=== PATIENT | female | born 1945 | race Caucasian/White ===

== ENCOUNTER → 2024-03-09 15:14 | Outpatient (REF) | payer OTHER, SELFPAY ==
[2024-03-09 16:30] LABS: % Basophils 0.8 % (0-2); % Eosinophils 2.8 % (0-6); % Immature Granulocytes 0.2 % (0-0.5); % Lymphocytes 36.6 % (20.5-51.1); % Monocytes 9.3 % (1.7-9.3); % Neutrophils 50.3 % (42.2-75.2); Absolute Eosinophils 0.1 10^3/uL (0-0.7); Absolute Lymphocytes 1.9 10^3/uL (1.2-3.4); Absolute Monocytes 0.5 10^3/uL (0.1-0.6); Absolute Neutrophils 2.6 10^3/uL (1.4-6.5); Hematocrit 39.2 % (37.0-47.0); Hemoglobin 13.4 g/dL (12.0-16.0); Mean Corp Hgb Conc. 34.2 g/dL (33.0-37.0); Mean Corpuscular Hgb 32.1 pg (27.0-31.0); Mean Platelet Volume 9.6 fL (7.4-10.4); Nucleated Red Blood Cells % 0 %; Platelet Count 211 10^3/uL (130-400); Red Blood Cell Count 4.17 10^6/uL (4.20-5.40); Red Cell Dist. Width 12.4 % (11.5-14.5); White Blood Cell Count 5.1 10^3/uL (4.8-10.8)
[2024-03-09 16:44] LABS: ALT (SGPT) 17 U/L (0-35); AST (SGOT) 27 U/L (14-36); Alkaline Phosphatase 63 U/L (38-126); Blood Urea Nitrogen 12 mg/dl (7-17); Calcium 9.4 mg/dl (8.4-10.2); Carbon Dioxide 28 mmol/L (22-30); Chloride 105 mmol/L (98-107); Glucose 76 mg/dl (70-99); Sodium 139 mmol/L (135-145); Total Bilirubin 0.4 mg/dl (0.2-1.3); Total Protein 6.5 g/dl (6.3-8.2); eGFR > 60.00
== END ==
LOC: REG 15:14
PROVIDERS: ATTENDING PHYSICIAN Internal Medicine Rheumatology; FAMILY PHYSICIAN Family Medicine
DX: M19.041 Primary osteoarthritis, right hand (principal); M19.079 Primary osteoarthritis, unspecified ankle and foot; M81.0 Age-related osteoporosis without current pathological fracture; R52 Pain, unspecified; Z51.81 Encounter for therapeutic drug level monitoring; M54.50 Low back pain, unspecified
CPT/HCPCS: 36415; 72110; 72202; 80053; 85025

== ENCOUNTER → 2024-03-29 16:23 | Outpatient (REF) | payer OTHER, SELFPAY ==
[2024-03-29 18:22] LABS: Free T4 0.88 ng/dl (0.78-2.19); Total Thyroxine 6.76 ug/dl (5.5-11.0)
[2024-03-29 18:35] LABS: TSH 1.49 uIU/ml (0.47-4.68)
== END ==
LOC: REG 16:23
PROVIDERS: ATTENDING PHYSICIAN Family Medicine
DX: R41.3 Other amnesia (principal)
CPT/HCPCS: 84436; 84439; 84443

== ENCOUNTER → 2024-04-22 15:01 | Outpatient (REF) | payer OTHER, SELFPAY ==
[2024-04-22 16:31] LABS: % Basophils 0.8 % (0-2); % Eosinophils 1.8 % (0-6); % Immature Granulocytes 0.3 % (0-0.5); % Monocytes 8.3 % (1.7-9.3); % Neutrophils 69.8 % (42.2-75.2); Absolute Basophils 0.1 10^3/uL (0-0.2); Absolute Eosinophils 0.1 10^3/uL (0-0.7); Absolute Lymphocytes 1.4 10^3/uL (1.2-3.4); Absolute Monocytes 0.6 10^3/uL (0.1-0.6); Absolute Neutrophils 5.1 10^3/uL (1.4-6.5); Hematocrit 40.4 % (37.0-47.0); Hemoglobin 13.7 g/dL (12.0-16.0); Mean Corp Hgb Conc. 33.9 g/dL (33.0-37.0); Mean Corpuscular Hgb 32.9 pg (27.0-31.0); Mean Corpuscular Volume 96.9 fL (81.0-99.0); Mean Platelet Volume 10.1 fL (7.4-10.4); Nucleated Red Blood Cells % 0 %; Platelet Count 238 10^3/uL (130-400); Red Blood Cell Count 4.17 10^6/uL (4.20-5.40); Red Cell Dist. Width 12.6 % (11.5-14.5); White Blood Cell Count 7.3 10^3/uL (4.8-10.8)
[2024-04-22 16:47] LABS: ALT (SGPT) 19 U/L (0-35); AST (SGOT) 29 U/L (14-36); Albumin 4.2 g/dl (3.5-5.0); Alkaline Phosphatase 70 U/L (38-126); Blood Urea Nitrogen 17 mg/dl (7-17); Carbon Dioxide 26 mmol/L (22-30); Chloride 103 mmol/L (98-107); Glucose 94 mg/dl (70-99); Potassium 4.1 mmol/L (3.5-5.1); Sodium 136 mmol/L (135-145); Total Bilirubin 0.3 mg/dl (0.2-1.3); Total Protein 6.6 g/dl (6.3-8.2); eGFR > 60.00
[2024-04-22 16:54] LABS: NT-proBNP 43.6 pg/ml
[2024-04-22 17:18] LABS: Urine Albumin Negative (Neg - Trace); Urine Bilirubin Negative (Negative); Urine Character Clear (Clear); Urine Color Yellow; Urine Glucose Negative (Negative); Urine Ketone Negative (Negative); Urine Leukocyte Negative (Negative); Urine Nitrite Negative (Negative); Urine Occult Blood Negative (Negative); Urine Specific Gravity 1.015 (<1.030); Urine Urobilinogen Negative (Neg - 1+)
== END ==
LOC: RAD 15:01
PROVIDERS: ATTENDING PHYSICIAN Physician Assistant
DX: R52 Pain, unspecified (principal); R60.0 Localized edema
CPT/HCPCS: 36415; 71046; 80053; 81003; 83880; 85025

== ENCOUNTER 2024-04-28 10:30 | Outpatient (RCR) | payer OTHER, SELFPAY | END 2024-04-28 23:59 | disposition home or self-care (01) | LOC: RPT 10:30 | PROVIDERS: ATTENDING PHYSICIAN Internal Medicine Rheumatology; FAMILY PHYSICIAN Family Medicine | DX: M54.50 Low back pain, unspecified (principal) | CPT/HCPCS: 97110; 97162; 97530 ==

== ENCOUNTER 2024-05-12 09:51 | Outpatient (RCR) | payer OTHER, SELFPAY | END 2024-05-12 10:44 | disposition home or self-care (01) | LOC: RPT 09:51 | PROVIDERS: ATTENDING PHYSICIAN Internal Medicine Rheumatology; FAMILY PHYSICIAN Family Medicine | DX: M54.50 Low back pain, unspecified (principal) | CPT/HCPCS: 97010; 97110 ==

== ENCOUNTER → 2024-05-26 15:53 | Outpatient (REF) | payer OTHER, SELFPAY | LOC: PAVMRI 15:53 | PROVIDERS: ATTENDING PHYSICIAN Family Medicine | DX: R41.3 Other amnesia (principal) | CPT/HCPCS: 70551 ==

== ENCOUNTER 2024-12-03 06:25 | Day surgery (SDC) | payer OTHER, SELFPAY | END 2024-12-03 11:18 | disposition home or self-care (01) | LOC: GI 06:25 | PROVIDERS: ATTENDING PHYSICIAN Internal Medicine Gastroenterology | DX: Z12.11 Encounter for screening for malignant neoplasm of colon (principal); K57.30 Diverticulosis of large intestine without perforation or abscess without bleeding; Z86.0101 Personal history of adenomatous and serrated colon polyps; Z80.0 Family history of malignant neoplasm of digestive organs | CPT/HCPCS: G0105 ==

== ENCOUNTER 2025-01-20 13:28 | Emergency (ER) | payer OTHER, SELFPAY ==
[2025-01-20 13:30] VITALS: BP 135/65
[2025-01-20 15:21] LABS: Hematocrit 40.3 % (37.0-47.0); Hemoglobin 13.8 g/dL (12.0-16.0); Mean Corp Hgb Conc. 34.2 g/dL (33.0-37.0); Mean Corpuscular Volume 96.4 fL (81.0-99.0); Mean Platelet Volume 9.4 fL (7.4-10.4); Platelet Count 209 10^3/uL (130-400); Red Blood Cell Count 4.18 10^6/uL (4.20-5.40); Red Cell Dist. Width 12.7 % (11.5-14.5); White Blood Cell Count 6.1 10^3/uL (4.8-10.8)
[2025-01-20 15:31] VITALS: BP 131/68
[2025-01-20 15:32] LABS: Urine Albumin Negative (Neg - Trace); Urine Bilirubin Negative (Negative); Urine Character Clear (Clear); Urine Color Yellow; Urine Glucose Negative (Negative); Urine Ketone Negative (Negative); Urine Leukocyte Negative (Negative); Urine Nitrite Negative (Negative); Urine Occult Blood Negative (Negative); Urine Urobilinogen Negative (Neg - 1+)
--- NOTE | 2025-01-20 15:38 | ED.GENMED ---
History of Present Illness
General
Chief Complaint: Crisis Evaluation
Source: patient
Exam Limitations: none
Time Seen by Provider: 01/20/25 14:56
Nursing documentation reviewed up to this point in time: agreed with
History of Present Illness
History of Present Illness:
Patient presents to ED for evaluation secondary to continual sensation of sadness and loneliness, which has been ongoing for some period of time. Patient states that she has been alone, since passing of her 2 years ago. As a result,
patient states that she has had significant decreased appetite recently with weight loss. Denies suicidal or homicidal ideation. Denies previous history of suicidal attempt. Denies chest pain or shortness of breath. Denies recent illness.
Past History
Past History
ED Past Medical History: Other (Depression, TIA, hypercholesterolemia)
ED Past Surgical History: Other (Noncontributory)
Social History
Tobacco: Non-smoker
Alcohol: None
Drug: None
Personal: Single
Living: alone
Employment: Employed
Family History
Family History: Other (Noncontributory)
Review of Systems
Review of Systems
Allergies reviewed?: Yes
All Other Systems: ROS reviewed and negative except as documented in HPI and ROS
Constitutional: Reports no symptoms
EENT: Reports no symptoms
Respiratory: Reports no symptoms
Cardiac: Reports no symptoms
ABD/GI: Reports no symptoms
Musculoskeletal: Reports no symptoms
Skin: Reports no symptoms
Neurological: Reports no symptoms
Psychiatric: Reports depression
Phy Exam
Physical Exam
Physical Exam:
Physical Exam
General: no apparent distress, not acutely ill. afebrile.
Head: nc/at. eomi
Neck: supple. normal range of motion.
Heart: s1/s2 regular rate and rhythm, no murmur.
Lungs: no acute respiratory distress. clear bilaterally
Abdomen: normal bowel sounds. not tender.
Neuro: alert and oriented x 3. no focal neurological deficits
Skin: no rash
Psychiatric: well kept. interactive and cooperative
Extremities: no edema. no calf tenderness.
Course
Orders/Labs/Results
Orders:
Orders
01/20/25 13:41
Crisis Consult Urgent
Reason for Consult: depression
01/20/25 15:11
Complete Blood Count/No Diff Urgent
Comprehensive Metabolic Panel Urgent
Magnesium Urgent
TSH Urgent
01/20/25 15:27
Urinalysis Reflex To Culture Urgent
Date Specimen was Collected: 01/20/25
Time Specimen was Collected: 15:25
Abnormal Lab Results
01/20/25
15:11
RBC 4.18 L 10^6/uL
(4.20-5.40)
MCH 33.0 H pg
(27.0-31.0)
Chloride 108 H mmol/L
(98-107)
01/20/25 15:11
01/20/25 15:11
Vital Signs
Initial and Last Documented VS:
Initial Vital Signs
Temp Pulse Resp BP Pulse Ox
97.6 F 58 18 135/65 97
01/20/25 13:30 01/20/25 13:30 01/20/25 13:30 01/20/25 13:30 01/20/25 13:30
Last Documented Vital Signs
Temp Pulse Resp BP Pulse Ox
97.6 F 59 16 137/77 98
01/20/25 13:30 01/20/25 18:00 01/20/25 18:00 01/20/25 18:00 01/20/25 18:00
MDM/Problems Addressed
MDM/Problems Addressed:
Patient evaluated by [facility]. Patient also spoke with an outpatient therapy facility, and intake completed. Patient will continue to follow-up as an outpatient.
*Critical Care Note
Total Time (30-74mins, 75-104mins- exclusive of procedures): Not Applicable
ED Attending Note
-
Portions of this chart may have been created with voice recognition software.� Occasional wrong word or��sound alike� substitutions may have occurred due to the inherent limitations of voice recognition software.
Discharge Plan
Departure
Patient Disposition: Home (Routine Discharge)
Date of Disposition: 01/20/25
Time of Disposition: 18:42
Patient with high blood pressure during this ER visit?: Yes
Discharge Problem:
Depression
Instructions: Depression, Adult (DC)
Prescriptions:
No Action
acetaminophen 325 MG tablet
650 mg PO PRN PRN (Reason: Pain, Fever)
simvastatin 10 MG tablet
10 mg PO QPM
alprazolam 0.5 MG tablet
0.5 mg PO Q4HPRN PRN (Reason: anxiety)
clonazepam 2 MG tablet
2 mg PO QPM
meclizine 25 mg tablet
25 mg PO TID PRN (Reason: dizziness) Qty: 10 0RF
Referrals:
NONE,* [Family Provider] -
Activity Restrictions/Additional Instructions:
As discussed, please follow-up with already scheduled outpatient therapy/counseling, for further evaluation and treatment.
Interventions
Interventions:
*Risk Screen - Suicide Last Done: 01/20/25 13:30
*General Assessment Last Done: 01/20/25 13:30
*Neglect/Abuse Screening Last Done: 01/20/25 13:30
*ED- Fall Risk Assessment Last Done: 01/20/25 14:20
*ED COVID-19 Vaccine History Last Done: 01/20/25 14:20
*Nursing Disposition Last Done: 01/20/25 18:43
ED-Psychological Assessment Last Done: 01/20/25 14:35
Discharge Date and Time
Discharge Date/Time: 01/20/25 18:45
Print Language: FRISIAN
[2025-01-20 15:42] LABS: ALT (SGPT) 22 U/L (0-35); AST (SGOT) 27 U/L (14-36); Alkaline Phosphatase 63 U/L (38-126); Blood Urea Nitrogen 11 mg/dl (7-17); Calcium 9.3 mg/dl (8.4-10.2); Carbon Dioxide 24 mmol/L (22-30); Chloride 108 mmol/L (98-107); Glucose 94 mg/dl (70-99); Magnesium 2.3 mg/dl (1.6-2.3); Sodium 139 mmol/L (135-145); Total Bilirubin 0.4 mg/dl (0.2-1.3); Total Protein 6.5 g/dl (6.3-8.2); eGFR > 60.00
[2025-01-20 16:14] LABS: TSH 1.43 uIU/ml (0.47-4.68)
[2025-01-20 18:00] VITALS: BP 137/77
== END 2025-01-20 18:45 | disposition home or self-care (01) ==
LOC: EMR 13:28
PROVIDERS: EMERGENCY PHYSICIAN Emergency Medicine
DX: F32.A Depression, unspecified (principal); E78.00 Pure hypercholesterolemia, unspecified; Z86.73 Personal history of transient ischemic attack (TIA), and cerebral infarction without residual deficits
CPT/HCPCS: 99284; 80053; 81003; 83735; 84443; 85027

== ENCOUNTER 2025-01-27 08:30 | Emergency (ER) | payer OTHER, SELFPAY ==
[2025-01-27 08:53] VITALS: BP 159/61
[2025-01-27 09:43] LABS: % Basophils 0.6 % (0-2); % Eosinophils 0.4 % (0-6); % Immature Granulocytes 0.4 % (0-0.5); % Lymphocytes 19.7 % (20.5-51.1); % Monocytes 6.5 % (1.7-9.3); % Neutrophils 72.4 % (42.2-75.2); Absolute Monocytes 0.3 10^3/uL (0.1-0.6); Absolute Neutrophils 3.7 10^3/uL (1.4-6.5); Hematocrit 43.6 % (37.0-47.0); Hemoglobin 15.1 g/dL (12.0-16.0); Mean Corp Hgb Conc. 34.6 g/dL (33.0-37.0); Mean Corpuscular Hgb 32.5 pg (27.0-31.0); Mean Corpuscular Volume 93.8 fL (81.0-99.0); Mean Platelet Volume 9.5 fL (7.4-10.4); Nucleated Red Blood Cells % 0 %; Platelet Count 249 10^3/uL (130-400); Red Blood Cell Count 4.65 10^6/uL (4.20-5.40); Red Cell Dist. Width 12.9 % (11.5-14.5); White Blood Cell Count 5.1 10^3/uL (4.8-10.8)
[2025-01-27 09:54] LABS: ALT (SGPT) 22 U/L (0-35); AST (SGOT) 26 U/L (14-36); Albumin 4.3 g/dl (3.5-5.0); Alkaline Phosphatase 57 U/L (38-126); Blood Urea Nitrogen 8 mg/dl (7-17); Calcium 9.6 mg/dl (8.4-10.2); Carbon Dioxide 21 mmol/L (22-30); Chloride 106 mmol/L (98-107); Glucose 111 mg/dl (70-99); Lipase 214 U/L (23-300); Potassium 3.8 mmol/L (3.5-5.1); Sodium 137 mmol/L (135-145); Total Bilirubin 0.9 mg/dl (0.2-1.3); Total Protein 6.8 g/dl (6.3-8.2); eGFR > 60.00
--- NOTE | 2025-01-27 10:07 | ED.GENMED ---
History of Present Illness
General
Chief Complaint: Abdominal Symptoms
Time Seen by Provider: 01/27/25 09:52
History of Present Illness
History of Present Illness:
79-year-old female with history of IBS, hypothyroidism, and depression presents to the emergency department for evaluation of persistent nausea vomiting and diarrhea for the past 3 days. Patient indicates that she has been nauseated for more than 1
week, and her partner notes that she has not been able to eat or drink for at least the past week due to nausea. Was seen here 1 week ago for depression and suicidal thoughts, she states the suicidal thoughts have resolved however depression
continues. 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 She reportedly was 'crying out in distress' earlier this morning due to pain and nausea but this has since resolved. No past history of abdominal surgeries
Past History
Past History
ED Past Medical History: Other (Depression, TIA, hypercholesterolemia)
ED Past Surgical History: Other (Noncontributory)
Social History
Tobacco: Non-smoker
Alcohol: None
Drug: None
Personal: Single
Living: alone
Employment: Employed
Family History
Family History: Other (Noncontributory)
Review of Systems
Review of Systems
Allergies reviewed?: Yes
All Other Systems: ROS reviewed and negative except as documented in HPI and ROS
Phy Exam
Physical Exam
Physical Exam:
GEN: Well appearing, NAD, WDWN
HEENT: Oral mucosa moist, no scleral icterus
Cardiac: Regular rate and rhythm, no murmurs
Lung: No respiratory distress, no tachypnea, lungs clear to auscultation bilaterally
Abdomen: Soft, grossly nontender
MSK: No gross deformity or injuries
Skin: Good color, no pallor or jaundice, no rashes
Neuro: Alert to place and self, disoriented to time with some confusion during recall of events
Psych: Calm, cooperative
Course
Orders/Labs/Results
Orders:
Orders
01/27/25 08:59
IV Insert/Care/Rem.- Treatment PRN
01/27/25 09:26
Complete Blood Count/With Diff Urgent
Comprehensive Metabolic Panel Urgent
Lipase Urgent
Thyroid profile [TSH Reflex To Free T4] Urgent
Urinalysis Reflex To Culture Urgent
Date Specimen was Collected: 01/27/25
Time Specimen was Collected: 08:59
Urine Microscopic Reflex Cult Urgent
Urine Culture Urgent
MICH Source: U
Specimen Description:
Date Specimen was Collected: 01/27/25
Time Specimen was Collected: 08:59
01/27/25 10:06
CT Abd/Pel (IV only)-DH only Urgent
Comment:
Reason For Exam: N/V/D, abd pain
0.9% Sodium Chloride 1000 ml [Nss] 1,000 ml IV BOLUS
01/27/25 11:17
Crisis Consult Urgent
Reason for Consult: depression, SI, failure to thrive
01/27/25 12:29
Case Management Consult ONCE
Case Management Consult: VN/Home Care
Abnormal Lab Results
01/27/25
09:26
MCH 32.5 H pg
(27.0-31.0)
Absolute Lymphs (auto) 1.0 L 10^3/uL
(1.2-3.4)
Lymphocytes % 19.7 L %
(20.5-51.1)
Carbon Dioxide 21 L mmol/L
(22-30)
Glucose 111 H mg/dl
(70-99)
Urine Ketones 2+ A
(Negative)
Ur Occult Blood Reflex 4+ A
(Negative)
Leukocyte Esterase Rfl 3+ A
(Negative)
Urine RBC 7-10 A /HPF
(0-2)
Urine WBC (Reflex) 11-15 A /HPF
(0-5)
Urine Bacteria (Reflex) Few A
(Negative)
Urine Albumin (Reflex) 1+ A
(Neg - Trace)
01/27/25 09:26
01/27/25 09:26
Vital Signs
Initial and Last Documented VS:
Initial Vital Signs
Temp Pulse Resp BP Pulse Ox
97.5 F 63 16 159/61 95
01/27/25 08:53 01/27/25 08:53 01/27/25 08:53 01/27/25 08:53 01/27/25 08:53
Last Documented Vital Signs
Temp Pulse Resp BP Pulse Ox
97.5 F 63 16 159/61 95
01/27/25 08:53 01/27/25 08:53 01/27/25 08:53 01/27/25 08:53 01/27/25 08:53
MDM/Problems Addressed
MDM/Problems Addressed:
I suspect patient's nausea and vomiting secondary to psychosomatic issues and failure to thrive due to ongoing depression. She has cognitive decline bordering on dementia at this point with significant difficulty with memory and recall. She was
seen by crisis and case management but essentially refused all resources. At this point I feel it may be appropriate for her to follow-up as an outpatient for consideration of neuropsychology evaluation to determine capacity to make medical
decisions. There does not appear to be any acute medical issue at this time, she is stable for continued outpatient management
*Critical Care Note
Total Time (30-74mins, 75-104mins- exclusive of procedures): Not Applicable
ED Attending Note
-
Portions of this chart may have been created with voice recognition software.� Occasional wrong word or��sound alike� substitutions may have occurred due to the inherent limitations of voice recognition software.
Discharge Plan
Departure
Patient Disposition: Home (Routine Discharge)
Date of Disposition: 01/27/25
Time of Disposition: 13:52
Patient with high blood pressure during this ER visit?: No
Discharge Problem:
Cognitive decline, Depression, Adult failure to thrive
Instructions: Depression in adults
Prescriptions:
New
ondansetron 4 mg tablet,disintegrating
4 mg PO TIDPRN PRN (Reason: nausea/vomiting) Qty: 10 0RF
No Action
acetaminophen 325 MG tablet
650 mg PO PRN PRN (Reason: Pain, Fever)
simvastatin 10 MG tablet
10 mg PO QPM
alprazolam 0.5 MG tablet
0.5 mg PO Q4HPRN PRN (Reason: anxiety)
clonazepam 2 MG tablet
2 mg PO QPM
meclizine 25 mg tablet
25 mg PO TID PRN (Reason: dizziness) Qty: 10 0RF
Referrals:
Henry Schmid MD [Family Provider] -
Activity Restrictions/Additional Instructions:
Netta needs to follow-up with her primary care physician for further cognitive evaluations, at this time it may be reasonable to consider that she does not have the capacity to make medical decisions. Please follow through with obtaining a casing tier
or in-home caregiver to assist with her cognitive issues. Please also consider placement in a memory care facility if possible
Interventions
Interventions:
*Risk Screen - Suicide Last Done: 01/27/25 08:53
*Neglect/Abuse Screening Last Done: 01/27/25 10:26
*ED- Fall Risk Assessment Last Done: 01/27/25 08:53
*Nursing Disposition Last Done: 01/27/25 14:27
HH-Asdmow-Zylmdebcrk Assessment Last Done: 01/27/25 10:26
Discharge Date and Time
Discharge Date/Time: 01/27/25 14:28
Print Language: ROMANIAN
[2025-01-27 10:23] LABS: Urine Albumin 1+ (Neg - Trace); Urine Bilirubin Negative (Negative); Urine Character Clear (Clear); Urine Color Yellow; Urine Glucose Negative (Negative); Urine Ketone 2+ (Negative); Urine Leukocyte 3+ (Negative); Urine Nitrite Negative (Negative); Urine Occult Blood 4+ (Negative); Urine Urobilinogen Negative (Neg - 1+)
[2025-01-27 10:32] LABS: TSH Reflex To Free T4 3.02 uIU/ml (0.47-4.68)
[2025-01-27 10:54] LABS: Urine Amorphous Seen; Urine Squamous Cell 26-30 /LPF (Few); Urine Urothelial Cell 26-30 /LPF (FEW)
[2025-01-27] MEDS: NSS 1000 IV (10:56)
[2025-01-27 10:58] LABS: Urine Bacteria Few (Negative)
--- NOTE | 2025-01-27 13:53 | CM ---
him manager reviewed patient's chart and met with patient and patient reports that she lives alone is independent with adl's and ambulation, patient's spouse passed about 2 years ago. Patient's daughter Radha Verma [phone], per daughter
patient has become more forgetful, but they have declined visiting nurses, case management specialist discussed A place for Mom, referral to [facility] A[facility] and private caregiver list.
Plan; Home today no needs. Patient and daughter have declined VN services.
== END 2025-01-27 14:28 | disposition home or self-care (01) ==
LOC: EMR 08:30
PROVIDERS: Physician Assistant; EMERGENCY PHYSICIAN Emergency Medicine; FAMILY PHYSICIAN Family Medicine
DX: R41.81 Age-related cognitive decline (principal); F32.A Depression, unspecified; R62.7 Adult failure to thrive; R11.2 Nausea with vomiting, unspecified; F03.93 Unspecified dementia, unspecified severity, with mood disturbance; E03.9 Hypothyroidism, unspecified; Z86.73 Personal history of transient ischemic attack (TIA), and cerebral infarction without residual deficits
CPT/HCPCS: 99284; 96360; 74177; 80053; 81003; 81015; 83690; 84443; 85025; 87086; Q9967

== ENCOUNTER 2025-01-28 08:25 | Emergency (ER) | payer OTHER, SELFPAY ==
[2025-01-28 08:31] VITALS: BP 126/79
[2025-01-28 09:59] LABS: % Basophils 0.6 % (0-2); % Eosinophils 0.1 % (0-6); % Immature Granulocytes 0.3 % (0-0.5); % Lymphocytes 17.4 % (20.5-51.1); % Monocytes 6.7 % (1.7-9.3); % Neutrophils 74.9 % (42.2-75.2); Absolute Lymphocytes 1.2 10^3/uL (1.2-3.4); Absolute Monocytes 0.5 10^3/uL (0.1-0.6); Absolute Neutrophils 5.3 10^3/uL (1.4-6.5); Hematocrit 42.3 % (37.0-47.0); Hemoglobin 14.7 g/dL (12.0-16.0); Mean Corp Hgb Conc. 34.8 g/dL (33.0-37.0); Mean Corpuscular Volume 94.8 fL (81.0-99.0); Mean Platelet Volume 9.3 fL (7.4-10.4); Nucleated Red Blood Cells % 0 %; Platelet Count 235 10^3/uL (130-400); Red Blood Cell Count 4.46 10^6/uL (4.20-5.40); Red Cell Dist. Width 12.8 % (11.5-14.5); White Blood Cell Count 7.1 10^3/uL (4.8-10.8)
[2025-01-28 10:23] LABS: ALT (SGPT) 25 U/L (0-35); AST (SGOT) 38 U/L (14-36); Albumin 4.7 g/dl (3.5-5.0); Alkaline Phosphatase 57 U/L (38-126); Blood Urea Nitrogen 7 mg/dl (7-17); Calcium 9.4 mg/dl (8.4-10.2); Carbon Dioxide 23 mmol/L (22-30); Chloride 104 mmol/L (98-107); Glucose 104 mg/dl (70-99); Lipase 191 U/L (23-300); Potassium 4.2 mmol/L (3.5-5.1); Sodium 139 mmol/L (135-145); Total Bilirubin 1.1 mg/dl (0.2-1.3); Total Protein 7.1 g/dl (6.3-8.2); eGFR > 60.00
[2025-01-28 12:00] VITALS: BP 167/101
--- NOTE | 2025-01-28 12:32 | ED.GENMED ---
History of Present Illness
General
Chief Complaint: Withdrawal Symptoms
Source: patient and family
Exam Limitations: none
Time Seen by Provider: 01/28/25 11:16
Nursing documentation reviewed up to this point in time: agreed with
History of Present Illness
History of Present Illness:
79-year-old female presents to the emergency department due to nausea vomiting diarrhea, and concern for benzodiazepine withdrawal. She has not taken her Xanax for 5 days.
Past History
Past History
ED Past Medical History: Other (Depression, TIA, hypercholesterolemia)
ED Past Surgical History: Other (Noncontributory)
Social History
Tobacco: Non-smoker
Alcohol: None
Drug: None
Personal: Single
Living: alone
Employment: Employed
Family History
Family History: Other (Noncontributory)
Review of Systems
Review of Systems
Allergies reviewed?: Yes
All Other Systems: Not applicable
Constitutional: Reports no symptoms
EENT: Reports no symptoms
Respiratory: Reports no symptoms
Cardiac: Reports no symptoms
ABD/GI: Reports nausea, vomiting, diarrhea and anorexia
: Reports no symptoms
Musculoskeletal: Reports no symptoms
Skin: Reports no symptoms
Neurological: Reports no symptoms
Endocrine: Reports no symptoms
Hematologic/Lymphatic: Reports no symptoms
Psychiatric: Reports anxiety
Phy Exam
Physical Exam
Physical Exam:
Physical Exam
General: no apparent distress, not acutely ill
Neck: supple. no meningeal signs. normal posterior pharynx
Heart: s1/s2 regular rate and rhythm, no murmur. equal radial
pulses.
HEENT: Pupils equal round reactive to light, EOMI
Lungs: no acute respiratory distress. clear bilaterally
Abdomen: normal bowel sounds. not tender. no CVAT
Neuro: alert and oriented. no focal neurological deficits cranial nerves II through XII intact
Skin: no rash
Psychiatric: well kept. interactive and cooperative
Extremities: no edema. no calf tenderness. negative homans. good distal pulses
Course
Orders/Labs/Results
Orders:
Orders
01/28/25 08:36
EKG [Electrocardiogram (*1)] Urgent
Reason for Study: Chest Pain
EKG- Treatment ONCE
01/28/25 09:44
Complete Blood Count/With Diff Urgent
Comprehensive Metabolic Panel Urgent
Lipase Urgent
Abnormal Lab Results
01/28/25
09:44
MCH 33.0 H pg
(27.0-31.0)
Lymphocytes % 17.4 L %
(20.5-51.1)
Glucose 104 H mg/dl
(70-99)
AST 38 H U/L
(14-36)
01/28/25 09:44
01/28/25 09:44
Vital Signs
Initial and Last Documented VS:
Initial Vital Signs
Temp Pulse Resp BP Pulse Ox
98.2 F 79 16 126/79 97
01/28/25 08:31 01/28/25 08:31 01/28/25 08:31 01/28/25 08:31 01/28/25 08:31
Last Documented Vital Signs
Temp Pulse Resp BP Pulse Ox
98.2 F 76 16 167/101 96
01/28/25 08:31 01/28/25 12:00 01/28/25 12:00 01/28/25 12:00 01/28/25 12:00
MDM/Problems Addressed
Differential Diagnosis Includes:
Anxiety, viral syndrome
MDM/Problems Addressed:
79-year-old female with nausea vomiting diarrhea, anxiety. Tolerating p.o. in ED. No signs of benzodiazepine withdrawal.
*Radiology
Radiology exam reviewed: radiology read reviewed (CT abdomen pelvis no acute findings from 01/27/2025)
*Pulse Oximetry
Patient hypoxic: no
*EKG
Interpreted by ED Provider?: Yes
EKG Intrepretation Date: 01/28/25
EKG Intrepretation Time: 08:39
Interpretation: normal
Comparison EKG: no changes
Heart Rate: 76
Rate: normal
Rhythm: sinus
Jackson: normal axis
Interval: normal interval
QRS Pattern: normal QRS
Ischemia: no ischemia
*Bead Inspector Interpretation
Rate: normal
Interpretation: normal
Heart Rate: 78
Rhythm: sinus
*Critical Care Note
Total Time (30-74mins, 75-104mins- exclusive of procedures): Not Applicable
Patient Management
Social determinants of health affecting care: Living situation and Strong social support
Escalation/DeEscalation of care consider admission/obs:
admit not indicated
ED Attending Note
-
Portions of this chart may have been created with voice recognition software.� Occasional wrong word or��sound alike� substitutions may have occurred due to the inherent limitations of voice recognition software.
Discharge Plan
Departure
Patient Disposition: Home (Routine Discharge)
Date of Disposition: 01/28/25
Time of Disposition: 12:33
Patient with high blood pressure during this ER visit?: Yes
Condition: Good
Discharge Problem:
Nausea vomiting and diarrhea
Instructions: Nausea and Vomiting, Adult (DC), BLOOD PRESSURE
Prescriptions:
No Action
acetaminophen 325 MG tablet
650 mg PO PRN PRN (Reason: Pain, Fever)
simvastatin 10 MG tablet
10 mg PO QPM
alprazolam 0.5 MG tablet
0.5 mg PO Q4HPRN PRN (Reason: anxiety)
clonazepam 2 MG tablet
2 mg PO QPM
meclizine 25 mg tablet
25 mg PO TID PRN (Reason: dizziness) Qty: 10 0RF
ondansetron 4 mg tablet,disintegrating
4 mg PO TIDPRN PRN (Reason: nausea/vomiting) Qty: 10 0RF
Referrals:
Henry Schmid MD [Family Provider] - Call in 1-3 days for appt
Interventions
Interventions:
*Risk Screen - Suicide Last Done: 01/28/25 08:31
*General Assessment Last Done: 01/28/25 12:04
*Neglect/Abuse Screening Last Done: 01/28/25 08:31
*ED- Fall Risk Assessment Last Done: 01/28/25 12:04
*ED COVID-19 Vaccine History Last Done: 01/28/25 12:04
*Nursing Disposition Last Done: 01/28/25 12:44
ED- Neurological Assessment Last Done: 01/28/25 11:45
ED-Psychological Assessment Last Done: 01/28/25 11:45
Discharge Date and Time
Discharge Date/Time: 01/28/25 12:44
Print Language: SINHALA
== END 2025-01-28 12:44 | disposition home or self-care (01) ==
LOC: EMR 08:25
PROVIDERS: EMERGENCY PHYSICIAN Emergency Medicine; FAMILY PHYSICIAN Family Medicine
DX: R11.2 Nausea with vomiting, unspecified (principal); R19.7 Diarrhea, unspecified; R03.0 Elevated blood-pressure reading, without diagnosis of hypertension
CPT/HCPCS: 99284; 80053; 83690; 85025; 93005

== ENCOUNTER 2025-03-21 19:10 | Emergency (ER) | payer OTHER, SELFPAY ==
[2025-03-21 19:21] VITALS: BP 137/72
[2025-03-21 19:49] LABS: % Basophils 0.7 % (0-2); % Eosinophils 0.9 % (0-6); % Immature Granulocytes 0.2 % (0-0.5); % Lymphocytes 35.9 % (20.5-51.1); % Monocytes 7.9 % (1.7-9.3); % Neutrophils 54.4 % (42.2-75.2); Absolute Eosinophils 0.1 10^3/uL (0-0.7); Absolute Lymphocytes 2.1 10^3/uL (1.2-3.4); Absolute Monocytes 0.5 10^3/uL (0.1-0.6); Absolute Neutrophils 3.2 10^3/uL (1.4-6.5); Hematocrit 40.6 % (37.0-47.0); Hemoglobin 13.9 g/dL (12.0-16.0); Mean Corp Hgb Conc. 34.2 g/dL (33.0-37.0); Mean Corpuscular Hgb 32.9 pg (27.0-31.0); Mean Platelet Volume 9.4 fL (7.4-10.4); Nucleated Red Blood Cells % 0 %; Platelet Count 258 10^3/uL (130-400); Red Blood Cell Count 4.23 10^6/uL (4.20-5.40); Red Cell Dist. Width 13.1 % (11.5-14.5); White Blood Cell Count 5.8 10^3/uL (4.8-10.8)
[2025-03-21 20:17] LABS: ALT (SGPT) 23 U/L (0-35); AST (SGOT) 26 U/L (14-36); Albumin 4.3 g/dl (3.5-5.0); Alkaline Phosphatase 99 U/L (38-126); Blood Urea Nitrogen 10 mg/dl (7-17); Calcium 9.3 mg/dl (8.4-10.2); Carbon Dioxide 22 mmol/L (22-30); Chloride 111 mmol/L (98-107); Glucose 101 mg/dl (70-99); Sodium 139 mmol/L (135-145); Total Bilirubin 0.3 mg/dl (0.2-1.3); Total Protein 6.7 g/dl (6.3-8.2); eGFR > 60.00
[2025-03-21 20:28] LABS: Troponin I < 0.012 ng/ml
[2025-03-21 22:09] VITALS: BP 115/56
[2025-03-21 23:37] VITALS: BP 147/67
--- NOTE | 2025-03-21 23:39 | ED.GENMED ---
History of Present Illness
General
Chief Complaint: Chest Pain
Source: patient
Exam Limitations: none
Time Seen by Provider: 03/21/25 23:30
Nursing documentation reviewed up to this point in time: agreed with
History of Present Illness
History of Present Illness:
Note:
CHIEF COMPLAINT(S)
Chest pain with radiation to the back and new onset left leg pain.
HISTORY OF PRESENT ILLNESS
The patient is a 79-year-old female presenting with chest pain over the past several months. The pain is described as intense pressure initiating in the chest and radiating through to the back, and sometimes to the neck. She notes a specific episode
today when the pain was more intense and began radiating down to her left leg, which is sore to this time. The chest pain episodes typically last about three minutes and occur sporadically without exertion. No dyspnea was reported during episodes,
but the episodes are described as disturbing and uncomfortable. Today, the leg pain is new and persistent, described as varying from sharp to diffuse across the leg, with no associated numbness or tingling. There was no recent long-distance travel,
trauma, or use of blood thinners. The patient denies any history of cardiac issues, and she does not currently follow with a intelligence analyst.
PHYSICAL EXAM
- Nursing notes reviewed and vital signs reviewed.
General: Patient is well appearing and in no acute distress; non-toxic
Skin: Warm and dry, no rashes or lesions
Head: Normocephalic, atraumatic
Eyes: Sclera non-icteric. EOMs intact.
Cardiac: Regular rate and rhythm, no murmurs, tenderness palpation over left external chest wall
Peripheral Vascular: Mild pedal edema noted, 2+ dorsalis pedis pulses bilaterally. 2+ radial pulses bilaterally
Pulm: Normal respiratory effort, no wheezes, rales, rhonchi
Abdomen: No abdominal tenderness to palpation
Musculoskeletal: Mild tenderness palpation noted to the left posterior calf
Neuro: CN II-XII intact, no focal neurologic deficits.
Psychiatric: Appropriate mood and affect.
EXTERNAL RECORDS REVIEWED
Reviewed ER physician augmentation from 01/28/2025 patient seen for nausea and vomiting there was concern for benzodiazepine withdrawal, patient symptoms were treated and she was discharged
Reviewed discharge summary from 03/19/2012 [facility] patient seen for persistent dizziness and increased liver functions she was found to have acute choledocholithiasis
PLAN
- Monitoring of troponin levels to rule out cardiac injury.
- Review of chest X-ray with a focus on potential mediastinal widening suggestive of aortic pathology.
- Consideration of an ultrasound for the leg to rule out potential deep vein thrombosis.
- Further evaluation of symptoms including reevaluation if new symptoms or changes occur.
DIFFERENTIAL DIAGNOSIS
The Differential Diagnosis includes, in no particular order and is not limited to:
- Angina pectoris
- Aortic dissection
- Gastroesophageal reflux disease (GERD)
- Costochondritis
- Pulmonary embolism
- Pleuritis
- Thoracic aortic aneurysm
- Peripheral arterial disease
- Herpes zoster (shingles) without rash
- Spinal stenosis or radiculopathy
MDM/DISPOSITION
79-year-old female with no cardiac history presents emergency department today with concerns of chest pain and radiating to the neck for several months that acutely worsened today. Episode today lasted 3 minutes. Currently she is pain-free but
notes pain in her left lower extremity. On physical exam, she is well-appearing no acute distress, she is tender on the left external chest wall however there is some mild swelling noted in the lower extremities bilaterally. She does have some
tenderness of the left calf. She got blood work which was unremarkable and her troponin was undetectable x 2. Her chest x-ray showed no evidence of widened mediastinum. She went for an ultrasound of her left lower extremity which was negative for
DVT. She is able to have full range of motion of the lower extremity and is able to walk without any difficulty. Patient is feeling better. Patient stable for discharge. Discussed findings with daughter as well. Considering patient has had
chest pain for months has never seen a intelligence analyst, patient was discharged with the chest pain hotline. Patient stable for discharge.
Past History
Past History
ED Past Medical History: Other (Depression, TIA, hypercholesterolemia)
ED Past Surgical History: Other (Noncontributory)
Social History
Tobacco: Non-smoker
Alcohol: None
Drug: None
Personal: Single
Living: alone
Employment: Employed
Family History
Family History: Other (Noncontributory)
Review of Systems
Review of Systems
All Other Systems: ROS reviewed and negative except as documented in HPI and ROS
Phy Exam
Physical Exam
Physical Exam:
see hpi
Scores
Heart Score for Chest Pain Patients
STEMI patient?: No
History: Slightly or Non-Suspicious
ECG: Normal
Age: >/= 65 years
Risk Factors: 1 or 2 Risk Factors
Troponin: </= Normal Limit
Heart Score for Chest Pain Patients: 3
Heart Score Risk: 2.5% MACE over next 6 weeks
Course
Orders/Labs/Results
Orders:
Orders
03/21/25 19:12
Electrocardiogram (*1) Urgent
Reason for Study: Chest Pain
EKG- Treatment ONCE
03/21/25 19:28
CR Chest - 2 Views Urgent
Comment:
Reason For Exam: chest pain x 2 hours
03/21/25 19:33
Complete Blood Count/With Diff Urgent
Comprehensive Metabolic Panel Urgent
Troponin I Urgent
03/21/25 22:45
EKG- Treatment ONCE
03/21/25 23:52
Troponin I Urgent
03/22/25
Electrocardiogram (*1) Stat
Reason for Study: Chest Pain
03/22/25 00:11
Acetaminophen [Tylenol] 650 mg PO NOW STA
03/22/25 00:30
Venous Doppler Lwr Ext Left [US Periph Venous LOWER Ext LT] Urgent
Comment:
Reason For Exam: left calf pain
Abnormal Lab Results
03/21/25
19:33
MCH 32.9 H pg
(27.0-31.0)
Chloride 111 H mmol/L
(98-107)
Creatinine 0.5 L mg/dL
(0.6-1.0)
Glucose 101 H mg/dl
(70-99)
03/21/25 19:33
03/21/25 19:33
Vital Signs
Initial and Last Documented VS:
Initial Vital Signs
Temp Pulse Resp BP Pulse Ox
97.4 F 84 18 137/72 97
03/21/25 19:21 03/21/25 19:21 03/21/25 19:21 03/21/25 19:21 03/21/25 19:21
Last Documented Vital Signs
Temp Pulse Resp BP Pulse Ox
97.4 F 63 19 113/57 98
03/21/25 19:21 03/22/25 02:00 03/22/25 02:00 03/22/25 00:00 03/22/25 00:57
*Pulse Oximetry
SaO2: 98
Oxygen Mode of Delivery: Room air
Patient hypoxic: no
*Critical Care Note
Total Time (30-74mins, 75-104mins- exclusive of procedures): Not Applicable
ED Attending Note
-
Portions of this chart may have been created with voice recognition software.� Occasional wrong word or��sound alike� substitutions may have occurred due to the inherent limitations of voice recognition software.
Discharge Plan
Departure
Patient Disposition: Home (Routine Discharge)
Date of Disposition: 03/22/25
Time of Disposition: 01:37
Patient with high blood pressure during this ER visit?: Yes
Discharge Problem:
Chest pain, Acute leg pain
Instructions: Active Range of Motion Exercises, Back and Hips, Chest Pain CBC Follow Up, BLOOD PRESSURE
Prescriptions:
No Action
acetaminophen 325 MG tablet
650 mg PO PRN PRN (Reason: Pain, Fever)
alprazolam 0.5 MG tablet
0.5 mg PO Q4HPRN PRN (Reason: anxiety)
levothyroxine 25 mcg Tablet
25 mcg PO DAILY
escitalopram oxalate 20 mg Tablet
20 mg PO DAILY
gabapentin 100 mg Tablet
100 mg PO TID
Referrals:
Henry Schmid MD [Family Provider, [facility]]
Activity Restrictions/Additional Instructions:
Your troponin tests were undetectable. Your blood work was unremarkable. Your chest x-ray did not show any evidence of acute disease. Your ultrasound was negative for blood clot.
Please follow-up with your primary care provider.
PLEASE RETURN TO THE EMERGENCY DEPARTMENT TO DEVELOP ACUTE WORSENING OF YOUR SYMPTOMS, SHORTNESS OF BREATH, INABILITY MOVE YOUR NECK, INABILITY TO AMBULATE OR WALK, FEVERS OR CHILLS, ABDOMINAL PAIN, NUMBNESS OR TINGLING IN YOUR EXTREMITIES, OR ANY
OTHER SIGNS OR SYMPTOMS WORRISOME TO YOU.
Interventions
Interventions:
*Risk Screen - Suicide Last Done: 03/21/25 19:21
*General Assessment Last Done: 03/21/25 19:21
*Neglect/Abuse Screening Last Done: 03/21/25 19:21
*ED- Fall Risk Assessment Last Done: 03/21/25 23:53
*ED COVID-19 Vaccine History Last Done: 03/21/25 23:53
*Nursing Disposition Last Done: 03/22/25 02:10
ED- Cardiac Assessment Last Done: 03/21/25 23:40
Discharge Date and Time
Discharge Date/Time: 03/22/25 02:10
Print Language: JAMA[place]
[2025-03-21 23:43] VITALS: BMI 19.6
[2025-03-22] VITALS: BP 113/57
[2025-03-22 00:36] LABS: Troponin I < 0.012 ng/ml
[2025-03-22] MEDS: TYLENOL 650 MG PO (00:55)
== END 2025-03-22 02:10 | disposition home or self-care (01) ==
LOC: EMR 19:10
PROVIDERS: Emergency Medicine; EMERGENCY PHYSICIAN Emergency Medicine; FAMILY PHYSICIAN Family Medicine
DX: R07.9 Chest pain, unspecified (principal); M79.605 Pain in left leg; E78.00 Pure hypercholesterolemia, unspecified; Z86.73 Personal history of transient ischemic attack (TIA), and cerebral infarction without residual deficits
CPT/HCPCS: 99285; 71046; 80053; 84484; 85025; 93005; 93971

== ENCOUNTER 2025-04-17 15:08 | Emergency (ER) | payer OTHER, SELFPAY ==
[2025-04-17 15:11] VITALS: BP 139/61
--- NOTE | 2025-04-17 17:19 | ED.MUSCINJ ---
HPI-Injury
General
Chief Complaint: Musculo-Skeletal Complaint
Source: patient
Exam Limitations: none
Time Seen by Provider: 04/17/25 17:16
Nursing documentation reviewed up to this point in time: agreed with
History of Present Illness-Injury
Initial Injury comments:
Patient to ED with complaint of right medial knee pain. States she walks approx 3 miles/day. States she tried to run on Friday and tripped. She denies falling. SInce then has had pain to right medial knee.
Past History
Past History
ED Past Medical History: Other (Depression, TIA, hypercholesterolemia)
ED Past Surgical History: Other (Noncontributory)
Social History
Tobacco: Non-smoker
Alcohol: None
Drug: None
Personal: Single
Living: alone
Employment: Employed
Family History
Family History: Other (Noncontributory)
Review of Systems
Review of Systems
Allergies reviewed?: Yes
All Other Systems: ROS reviewed and negative except as documented in HPI and ROS
Constitutional: Reports no symptoms
Musculoskeletal: Reports joint pain (pain to right medial knee)
Skin: Reports no symptoms
Neurological: Reports no symptoms
Psychiatric: Reports no symptoms
Musculoskeletal Injury Exam
Musculoskeletal Injury Exam
Right Medial Knee:
Pain with Movement?: Moderate
Tender to palpation?: Moderate
Soft tissue swelling?: None
External deformity and angulation?: None
Joint effusion?: Mild
Contusion?: None
Hematoma-local bleeding into tissue?: None
Strain- Sprain- Tear (Connective tissue injury)?: Moderate
Crepitus with movement?: No
Joint instability?: No
Malalignment/deformity?: No
Range of motion: Full
Distal skin color and temperature: normal-warm & good color
Capillary Refill: normal
Normal distal neurovascular exam?: Yes
Phy Exam
General Physical Exam
General Presentation: well appearing and no apparent distress
General age: appears stated age
General Skin: warm and dry
General Habitus: normal
General Mental: alert
Musculoskeletal Exam
Musculoskeletal Exam: full ROM and neuro vasc intact
Skin Exam
Skin Exam: normal color, warm/dry and no rash
Psychiatric Exam
Psychiatric Exam: normal mood/affect
Injury Course
Orders/Labs/Results
Orders:
Orders
04/17/25 15:11
CR Knee- Right 4 Or More View* Urgent
Reason For Exam: pain
04/17/25 17:19
Knee Immobilizer Right-Treatme ONCE
*Radiology
Radiology exam reviewed: radiology read reviewed
*Pulse Oximetry
SaO2: 98
Oxygen Mode of Delivery: Room air
Patient hypoxic: no
*Critical Care Note
Total Time (30-74mins, 75-104mins- exclusive of procedures): Not Applicable
Update Note
Update Note:
Patient to ED with complaitn of rightmedial knee pain. States she tripped while attempting to run on friday. No fall. No bruising or swelling of knee noted. No erythema. She has full ROM to joint. Xray neg for fx. Will place in knee brace. She
will continue ice, ibuprofen, follow up iwth ortho if her symptoms do not improve.
ED Attending Note
-
Portions of this chart may have been created with voice recognition software.� Occasional wrong word or��sound alike� substitutions may have occurred due to the inherent limitations of voice recognition software.
Discharge Plan
Departure
Patient Disposition: Home (Routine Discharge)
Date of Disposition: 04/17/25
Time of Disposition: 17:24
Patient with high blood pressure during this ER visit?: No
Condition: Good
Covid-19: Not Applicable
Discharge Problem:
Knee pain
Instructions: Knee Immobilizer (DC), Knee Sprain (DC), Ibuprofen, Using Cold for Pain
Prescriptions:
No Action
acetaminophen 325 MG tablet
650 mg PO PRN PRN (Reason: Pain, Fever)
alprazolam 0.5 MG tablet
0.5 mg PO Q4HPRN PRN (Reason: anxiety)
levothyroxine 25 mcg Tablet
25 mcg PO DAILY
escitalopram oxalate 20 mg Tablet
20 mg PO DAILY
gabapentin 100 mg Tablet
100 mg PO TID
Referrals:
Rashawn Bolden MD [[facility], Orthopedics]
Referral Note: Follow up if your symptoms do not improve over the next week.
Interventions
Interventions:
*Risk Screen - Suicide Last Done: 04/17/25 15:11
*General Assessment Last Done: 04/17/25 15:11
*Neglect/Abuse Screening Last Done: 04/17/25 15:11
*ED- Fall Risk Assessment Last Done: 04/17/25 15:11
*ED COVID-19 Vaccine History Last Done: 04/17/25 15:11
Discharge Date and Time
Print Language: UKRAINIAN
== END 2025-04-17 18:15 | disposition home or self-care (01) ==
LOC: EMR 15:08
PROVIDERS: EMERGENCY PHYSICIAN Emergency Medicine
DX: M25.561 Pain in right knee (principal); F32.A Depression, unspecified; E78.00 Pure hypercholesterolemia, unspecified; Z86.73 Personal history of transient ischemic attack (TIA), and cerebral infarction without residual deficits
CPT/HCPCS: 99283; 29505; 73564

== ENCOUNTER 2025-05-08 12:07 | Emergency (ER) | payer OTHER, SELFPAY ==
[2025-05-08 12:11] VITALS: BP 148/83
[2025-05-08 12:52] VITALS: BMI 19.8
--- NOTE | 2025-05-08 13:33 | ED.GENMED ---
History of Present Illness
General
Chief Complaint: Anxiety
Source: patient
Exam Limitations: none
Time Seen by Provider: 05/08/25 13:15
Nursing documentation reviewed up to this point in time: agreed with
History of Present Illness
History of Present Illness:
see MDM
Past History
Past History
ED Past Medical History: Other (Depression, TIA, hypercholesterolemia)
ED Past Surgical History: Other (Noncontributory)
Social History
Tobacco: Non-smoker
Alcohol: None
Drug: None
Personal: Single
Living: alone
Employment: Employed
Family History
Family History: Other (Noncontributory)
Review of Systems
Review of Systems
Allergies reviewed?: Yes
All Other Systems: Not applicable
Phy Exam
Physical Exam
Physical Exam:
GENERAL: Alert , in no apparent distress
HEAD: NCAT
EYE: pupils equal and reactive, no nystagmus, no photophobia
NECK: Supple,full rom, nontender
ENT: o/p clr, mmm.
CARDIAC: Regular rate and rhythm . no edema
LUNGS: Clear breath sounds bilaterally, no acute respiratory distress, no wheezes/rales/rhonchi
ABDOMEN: Soft, without focal tenderness, no r/g, no cvat
NEUROLOGICAL: Alert and orientedx 4, cn intact, no facial asymmetry, 5/5 strength in UE/LE, sensation intact, romberg neg, ambulates without assistance, neg pronator drift
no muscle twtiching
brisk 3+ reflexes LE
SKIN: Warm and dry, skin intact.
MUSCULOSKELETAL: No edema, well perfused.
PSYCH: agitated, anxious
Course
Vital Signs
Initial and Last Documented VS:
Initial Vital Signs
Temp Pulse Resp BP Pulse Ox
36.9 C 89 16 148/83 98
05/08/25 12:11 05/08/25 12:11 05/08/25 12:11 05/08/25 12:11 05/08/25 12:11
Last Documented Vital Signs
Temp Pulse Resp BP Pulse Ox
36.9 C 89 16 148/83 98
05/08/25 12:11 05/08/25 12:11 05/08/25 12:11 05/08/25 12:11 05/08/25 12:11
MDM/Problems Addressed
Differential Diagnosis Includes:
see MDM
MDM/Problems Addressed:
Note:
CHIEF COMPLAINT(S)
Involuntary leg shaking.
HISTORY OF PRESENT ILLNESS
The patient, a female, presented to the emergency department with a chief complaint of involuntary shaking of the leg. She reported that the episode began while she was at [employer] and described a sensation of her leg starting to shake without any
voluntary control. This occurred while in [employer], causing her to step out to the lobby due to a concern of disturbing the service. Once outside, someone noticed her condition and suggested she be taken to the hospital, although she felt there was
nothing wrong with her. The shaking lasted approximately 10 to 15 minutes. She denied experiencing headaches, chest pain, or other pains during this event. Her history is significant for seizures, and she mentioned anxiety as a factor in her life,
describing herself as a 'high-lawful person,' indicating a high-stress level, potentially related to her experiences.
The patient expressed reluctance to undergo further medical evaluation, such as imaging or laboratory workup, specifically mentioning she did not want a workup involving blood tests or CT scans. She attributed her symptoms to either anxiety or a
muscle spasm. Historically, she recalls a similar event occurring 'one hundred years ago' but did not pursue MRI or further medical evaluation at that time.
PHYSICAL EXAM
- Neurological: The patient reported an increase in heart rate due to anxiety. Sensation was intact when tested on the face. Muscle strength was assessed, with resistance tests conducted on the upper and lower extremities, demonstrating normal
resistance and strength. Reflexes and voluntary muscle relaxation were evaluated, with no abnormalities noted during the examination.
- Nursing note reviewed and vital signs reviewed.
PLAN
The patient is informed about possible conditions that could explain her symptoms, including anxiety, muscle spasms, or a potential focal seizure that may require further investigation through imaging, blood work, and a neurology consult. However,
the patient is declining these outpatient evaluations for the time being. She is advised that should she change her mind or want to pursue this further evaluation, it can be done on an outpatient basis.
DIFFERENTIAL DIAGNOSIS
The Differential Diagnosis includes, in no particular order and is not limited to:
1. Focal seizure
2. Psychogenic nonepileptic events
3. Muscle spasm
4. Anxiety-related tremor
5. Essential tremor
6. Parkinsonism
7. Electrolyte imbalance
8. Peripheral nerve disorder
9. Transient ischemic attack
10. Hyperthyroidism-related tremor
79-year-old female brought here after having involuntary shakiness of her R leg whlie at [employer]
she says another [employer] goer called for help but she says she doesn' tneed it
she isn't sure why she is here and she is quite agitated about waiting to be seen
she would like to go home, aware she has had no work up for this
she is aware this could be seizure activity and is refusing all testing
d/c home
*Pulse Oximetry
SaO2: 98
Oxygen Mode of Delivery: Room air
Patient hypoxic: no (98)
*Critical Care Note
Total Time (30-74mins, 75-104mins- exclusive of procedures): Not Applicable
ED Attending Note
-
Portions of this chart may have been created with voice recognition software.� Occasional wrong word or��sound alike� substitutions may have occurred due to the inherent limitations of voice recognition software.
Discharge Plan
Departure
Patient Disposition: Home (Routine Discharge)
Date of Disposition: 05/08/25
Time of Disposition: 13:36
Patient with high blood pressure during this ER visit?: Yes
Condition: Fair
Covid-19: Not Applicable
Discharge Problem:
leg shaking, leg twitching
Instructions: Muscle spasm - ED discharge instructions
Prescriptions:
No Action
acetaminophen 325 MG tablet
650 mg PO PRN PRN (Reason: Pain, Fever)
alprazolam 0.5 MG tablet
0.5 mg PO Q4HPRN PRN (Reason: anxiety)
levothyroxine 25 mcg Tablet
25 mcg PO DAILY
escitalopram oxalate 20 mg Tablet
20 mg PO DAILY
gabapentin 100 mg Tablet
100 mg PO TID
Referrals:
NONE,* [Family Provider, Internal Medicine]
Activity Restrictions/Additional Instructions:
Were not sure the cause of your involuntary leg twitching, you refused any workup here. Should you have another episode of this you should be seen by your family doctor or the ER. We can consider if this could be a neurologic condition like a
seizure.
Return for any concerns
Interventions
Interventions:
*Risk Screen - Suicide Last Done: 05/08/25 12:11
*General Assessment Last Done: 05/08/25 12:53
*Neglect/Abuse Screening Last Done: 05/08/25 12:11
*ED- Fall Risk Assessment Last Done: 05/08/25 12:53
ED-Psychological Assessment Last Done: 05/08/25 12:56
Discharge Date and Time
Print Language: CROAT[place]
== END 2025-05-08 13:50 | disposition home or self-care (01) ==
LOC: EMR 12:07
PROVIDERS: EMERGENCY PHYSICIAN Student in an Organized Health Care Education/Training Program
DX: R25.1 Tremor, unspecified (principal); R25.3 Fasciculation; E78.00 Pure hypercholesterolemia, unspecified; Z86.73 Personal history of transient ischemic attack (TIA), and cerebral infarction without residual deficits
CPT/HCPCS: 99282

== ENCOUNTER → 2025-06-22 16:38 | Outpatient (REF) | payer OTHER, SELFPAY | LOC: PAVMRI 16:38 | PROVIDERS: ATTENDING PHYSICIAN Orthopaedic Surgery; FAMILY PHYSICIAN Family Medicine | DX: M25.561 Pain in right knee (principal) | CPT/HCPCS: 73721 ==